=== PATIENT | male | born 1935 | race Caucasian/White ===

== ENCOUNTER 2019-01-03 10:34 | Emergency (ER) | payer MEDICARE, OTHER, MEDICAID ==
[2019-01-03] MEDS: SOD CHLORIDE 0.9% 500 ML IV (14:54)
== END 2019-01-03 21:28 | disposition home or self-care (01) ==
LOC: E/R 21:28
DX: E86.0 Dehydration (principal); I12.9 Hypertensive chronic kidney disease with stage 1 through stage 4 chronic kidney disease, or unspecified chronic kidney disease; N18.9 Chronic kidney disease, unspecified; E11.22 Type 2 diabetes mellitus with diabetic chronic kidney disease; D64.9 Anemia, unspecified; R51 Headache; Z79.4 Long term (current) use of insulin; Z87.891 Personal history of nicotine dependence
CPT/HCPCS: 36415; 70450; 71045; 72125; 73562; 80048; 80307; 82962; 84484; 85025; 93005; 99285-25